=== PATIENT | female | born 1950 | race Caucasian/White ===

== ENCOUNTER 2023-07-31 18:09 | Emergency (ER) | payer MEDICARE ==
[~2023-07-31] VITALS: Ht 167.6 cm; Wt 98.4 kg
[2023-07-31 18:34] VITALS: BP 136/66
[2023-07-31] MEDS ORDERED: Methocarbamol 500 MG Tab PO ONE (19:55)
[2023-07-31] MEDS ORDERED: Ketorolac Tromethamine 15mg Vial IV ONE (19:55)
[2023-07-31] MEDS ORDERED: Lidocaine 4% 1 Patch TOP ONE (19:55)
[2023-07-31] MEDS ORDERED: Acetaminophen 500 MG Tab PO ONE (19:55)
[2023-07-31] MEDS ORDERED: Diazepam 5 MG Tab PO ONE (20:00)
[2023-07-31] MEDS ORDERED: OxyCODONE 5 mg/Acetamin 325 mg TABLET PO ONE (21:00)
[2023-07-31] MEDS ORDERED: RX Prepack 6 Tabs Oxycodone 5mg UD ONE (21:15)
[2023-07-31] MEDS ORDERED: DIAZ5 PO (21:17)
[2023-07-31] MEDS ORDERED: LIDO700A20 TOP (21:17)
[2023-07-31] MEDS ORDERED: Percocet 5-3251 EACH PO (21:17)
[2023-07-31] MEDS ORDERED: CYCL10 PO ×2 (21:17)
[2023-07-31] MEDS ORDERED: Robaxin750 MG PO (21:17)
[2023-08-01] MEDS ORDERED: Robaxin750 MG PO (10:45)
[2023-08-01] MEDS ORDERED: Percocet 5-3251 EACH PO (10:45)
[2023-08-01] MEDS ORDERED: CYCL10 PO (10:45)
[2023-08-01] MEDS ORDERED: DIAZ5 PO (10:45)
[2023-08-01] MEDS ORDERED: LIDO700A20 TOP (10:45)
== END 2023-07-31 21:46 | disposition home or self-care (01) ==
LOC: ER 18:09
DX: M62.830 Muscle spasm of back (principal)
CPT/HCPCS: 96374; 99283-25; A9270; J1885